=== PATIENT | male | born 1955 | race Hispanic/Latino ===

== ENCOUNTER 2019-12-09 | Emergency (ER) | payer OTHER ==
[2019-12-09] MEDS ORDERED: DICLOFENAC75 MG PO (08:11)
[2019-12-09] MEDS ORDERED: COLCHICINE0.6 M2 PO (08:11)
== END 2019-12-09 08:35 | disposition home or self-care (01) | DRG 554 ==
DX: M10.09 Idiopathic gout, multiple sites (principal)